=== PATIENT | male | born 1960 | race Caucasian/White ===

== ENCOUNTER → 2018-06-07 11:30 | Outpatient (CLI) | payer OTHER, SELFPAY ==
[2018-06-07 09:13] VITALS: BMI 24.8
[2018-06-07 14:26] LABS: Absolute Lymphocyte Count 1.51 X10^3/ul (0.83-4.51); Absolute Neutrophil Count 3.9 X10^3/uL (2.0-7.7); Basophil# 0.01 X10^3/uL; Basophil% 0.2 % (0-1); Eosinophil# 0.08 X10^3/uL; Eosinophils% 1.3 % (0-5); Hematocrit 44.5 % (40-54); Hemoglobin 14.7 g/dl (13.0-16.5); Lymphocyte # 1.51 X10^3/ul (4.0); Lymphocyte % 24.4 % (19-41); Mean Corpuscular Hgb 29.6 pg (27.0-32.0); Mean Corpuscular Volume 89.7 fL (80-94); Mean Platelet Vol. 10.7 fl (6.2-12.0); Monocyte# 0.68 X10^3/uL; Neutrophil # 3.88 X10^3/uL (2.7-7.7); Neutrophil % 62.8 % (47-70); Platelet Count 280 K/mm3 (150-450); RBC Distribution Width CV 13.2 % (11.6-14.6); Red Blood Count 4.96 M/mm3 (4.6-6.2); White Blood Count 6.2 K/mm3 (4.4-11.0)
[2018-06-07 14:27] LABS: POSITIVE COUNT NO; POSITIVE DIFFERENTIAL NO; POSITIVE MORPHOLOGY NO
[2018-06-07 14:43] LABS: ALB/GLOB Ratio 1.1 RATIO (0.9-2.4); AST(SGOT) 17 U/L (15-37); Alanine Aminotransfer ALT/SGPT 29 U/L (16-61); Alkaline Phosphatase 67 U/L (45-117); Anion Gap 8 (5-15); BUN 19 mg/dL (7-18); BUN/Creat Ratio 19.5 RATIO (10-20); Calcium,Total 8.8 mg/dL (8.5-10.1); Chloride 105 mmol/L (98-107); Cholesterol 174 mg/dL (200); Creatinine, Serum 0.98 mg/dL (0.70-1.30); EST Glomerular Filtration Rate 83 mL/min (>60); Est Glom Filt Rate - Afr Amer 101 mL/min (>60); Globulin 3.5 g/dL (2.2-4.2); Glucose 82 mg/dL (74-106); High Density Lipoprotein 76 mg/dL; PSA,Total - Annual Screen 3.08 ng/mL (0.00-4.00); Protein, Total 7.5 g/dL (6.4-8.2); Sodium Level 142 mmol/L (136-145); Thyroid Stim Hormone (TSH) 1.09 uIU/mL (0.358-3.74); Triglycerides 32 mg/dL; Very Low Density Lipoprotein 6 mg/dL (5-40)
--- OUTSIDE RECORDS SUMMARY | 2018-08-02 10:27 | XMS RPT_ITS ---
:1960 Author Organization OHIP Care Team Providers Name Role Phone Heri Umana ANIMAL CRUELTY INVESTIGATOR-C Attending Unavailable Kameron Horta Referring Unavailable Heri Umana ANIMAL CRUELTY INVESTIGATOR-C Attending Unavailable Heri Umana ANIMAL CRUELTY INVESTIGATOR-C Referring Unavailable Kameron Horta Primary Care Unavailable PROBLEMS PROBLEMS DATE TYPE CONDITION / CODE ATTENDING STATUS SOURCE 06/07/2018 Unknown Z00.00 - Heri Umana Active [place] Encounter for ANIMAL CRUELTY INVESTIGATOR-C [facility] medical Repository examination without abnormal findings / Z00.00(ICD-10) 06/07/2018 Unknown Z12.5 - Encounter Heri Umanaoster for screening for ANIMAL CRUELTY INVESTIGATOR-C [facility] neoplasm of Repository prostate / Z12.5(ICD-10) 06/07/2018 Unknown Z13.29 - Heri Umana Active [place] Encounter for ANIMAL CRUELTY INVESTIGATOR-C [facility] other suspected Repository endocrine disorder / Z13.29(ICD-10) PROCEDURES PROCEDURES No Procedure Records FoundRESULTS RESULTS INTERNAL MEDICINE Observed: 06/10/2018 Status: F Source: [place] OFFICE VISIT 12:07 PM [facility] REPOSITORY [facility] [address] [place] [address] OFFICE VISIT Date of Service: 06/07/18 MR#: [id number] Acct: [id number] Name: TIFFANY MIRZA Rep #: [id number] : 1960 Provider: Heri Umana ANIMAL CRUELTY INVESTIGATOR Age/Sex: 57/M Location: [facility] [place] Status: Signed Intake Vital Signs06/07/18 Height 5 ft 10 in Intake Visit 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 The patient has a past medical history as listed above. The patient presents today with no acute problems or concerns. He states he is up-to-date on his colonoscopies. He has not received influenza vaccine this year but is refusing currently. He denies smoking or drinking alcohol. He denies issues with his prostate such as dribbling or weak stream. The patient otherwise denies any fever, chills, nausea, vomiting, shortness of breath, chest pain or pressure, palpitations, orthopnea, lower extremity edema, syncope or presyncopal episodes. ROS Const Constitutional: No anorexia, body ache, chills, fever(s), decreased energy, malaise, night sweats, weight change, sleep problems, other, snoring, weakness, frequent falls, headache(s), abnormal sleep pattern, change in appetite, excessive sweating or fatigue Eyes Eyes: No blurry vision, change in vision, double vision, discharge, dry eyes, bulging eyes, floaters, eye pain, light sensitivity, spots in vision, tunnel vision, other or visual disturbances ENT ENT: Positive for tinnitus; no ear pain, ear discharge, ear pressure, hearing loss, dizziness/vertigo, balance problems, nosebleed/epistaxis, nasal congestion, nasal obstruction, nose pain, sinus pressure, sinus pain, nasal discharge, post nasal drip, facial pain, dental pain, dry mouth, bad breath, hoarseness, mouth lesions, mouth pain, sore throat, difficulty swallowing, neck pain, abnormal hearing, headache(s), other, lip swelling, throat swelling or tongue swelling Resp Respiratory: No cough, change in phlegm color, chest congestion, excessive phlegm production, hemoptysis, pain on inspiration, shortness of breath, pain with cough, snoring, stridor, other or wheezing Cardio Cardiology: No chest pain at rest, chest pain with exertion, leg pain with exertion, shortness of breath, dyspnea on exertion, generalized swelling, irregular heart rhythm, lightheadedness, orthopnea, radiating jaw, neck or arm pain, fast heart rate, slow heart rate, palpitations, other or excessive sweating Gastro GI: No abdominal pain, belching, bloating, change in bowel habits, change in stool character, coffee ground emesis, constipation, cramping, diarrhea, heartburn, difficulty swallowing, feeling full early, excessive flatus, incontinent of stools, Vomiting blood/hematemesis, blood in stool, loose stools, Black,tarry stools, nausea/dyspepsia, pain with swallowing, vomiting or other Musc Musculoskeletal: No joint pain, back pain, deformity, joint swelling, limited range of motion, loss of height, muscle cramps, muscle weakness, decreased muscle mass, body aches, neck pain, radiating pain into limb, stiffness, other, abnormal walking, numbness or tingling Skin Skin: No acne, hair loss, change in hair, nail changes, boil, change in skin color, dry skin, redness, excessive hair growth, yellowing of the skin, lesions, rash, skin pain, skin ulcer, sores, skin swelling, wounds or itching Neuro Neurology: No abnormal walking, abnormal hearing, abnormal movements, abnormal speech, unsteady gait/balance, dizziness, weakness, frequent falls, headache(s), lack of coordination, loss of vision, numbness, tingling, visual disturbances, restless legs, fainting, tremor(s), other, behavioral changes, confusion or memory loss Psych Psychiatric: No abnormal sleep pattern, No lack of enjoyment, No anxiety, No behavioral changes, No change in appetite, No confusion, No depression, No difficulty concentrating, No hopelessness, No irritability, No memory loss, No mood swings, No panic attacks, No paranoia, No Thoughts of harming yourself/Others, No hallucinations, No other Endo Endocrine: No change in body appearance, cold intolerance, excessive sweating, fatigue, flushing, heat intolerance, increased thirst/drinking, increased hunger, increased urination or other Aller/Imm Allergy/Immunologic: No food intolerance, itchy eyes, lip swelling, seasonal allergy symptoms, throat swelling, tongue swelling, hives, wheezing or other Octavio/Lymp Hematologic/Lymphatic: No easy bleeding, easy bruising, enlarged lymph nodes or other Exam Const General: cooperative, comfortable, no acute distress Nutritional Appearance: average body habitus, well nourished Orientation: alert, oriented x3 Limitations: mental status not altered HENWI Head: normal to inspection Ears: hearing grossly normal bilaterally Nose: external nose normal Eyes General: appearance normal, both eyes and all related structures Neck Neck: normal visual inspection Thyroid: thyroid normal Lymphatic: no lymphadenopathy noted Resp Effort AND Inspection: normal respiratory effort, able to speak in complete sentences, normal respiratory pattern, symmetric chest movement, no audible wheezes, no cough Auscultation: Bilateral: Clear to Auscultation Cardio Palpation: normal PMI Rate: regular rate Heart Sounds: S1 normal, S2 normal, normal S1 and S2, no click, no gallops, no murmurs, no rubs GI Inspection: normal to inspection Auscultation: normal bowel sounds, no hyperactive bowel sounds, no hypoactive bowel sounds Palpation: soft, no hepatosplenomegaly, nontender Other: Waist circumference 37 inches Musc Musculoskeletal: No muscle weakness Skin General: no rashes or lesions noted, elasticity normal, turgor normal Lesions: no lesions Rashes: no rashes Neuro General: alert, awake, oriented x3, CN's II-XI intact bilaterally Speech: speech normal Gait: normal gait Motor: muscle tone normal throughout Extrem General: normal to inspection, normal gait, no edema, no pedal edema Psych Appearance: grossly normal Mental Status: mental status grossly normal Affect: normal affect Attitude: cooperative Thought Process: normal Assessment AND Plan Problems 1. Encounter for preventative adult health care examination Z00.00 Plan We will obtain CBC, CMP, psa, tsh and lipid as baseline bloodwork. Patient current on colonoscopies. Pt to continue with diet, exercise, weightloss and avoidance of excessive alcohol and tobacco. no concern for stds. Refusing influenza and all vaccines at this time. Orders Orders: Plan Detail Follow Up As needed Coding Level of Care Code Off vis,new,prev 40-64yrs Diagnoses Encounter for preventative adult health care examination Z00.00 06/10/18 1207 <Electronically signed by Heri Umana ANIMAL CRUELTY INVESTIGATOR-C> Date Heri Umana ANIMAL CRUELTY INVESTIGATOR-C Cosigner Signature: Date (if applicable) CC: CBC W/DIFF, AUTOMATED Collected: 06/07/2018 Status: F Source: [place] 11:39 AM [facility] REPOSITORY TYPE CODE TESTS RESULT OUT OF RANGE REFERENCE UNITS LAB L100.1000 4.4-11.0 K/mm3 Normal WBC 6.2 LAB L100.1200 4.6-6.2 M/mm3 Normal RBC 4.96 LAB L100.1300 13.0-16.5 g/dl Normal HGB 14.7 LAB L100.1400 40-54 % Normal HCT 44.5 LAB L100.1500 80-94 fL Normal MCV 89.7 LAB L100.1600 27.0-32.0 pg Normal MCH 29.6 LAB L100.1700 32-36 g/gl Normal MCHC 33.0 LAB L100.1810 11.6-14.6 % Normal RDW CV 13.2 LAB L100.1820 35.1-43.9 fl Normal RDW SD 43.0 LAB L100.1900 150-450 K/mm3 Normal PLT 280 LAB L100.2000 6.2-12.0 fl Normal MPV 10.7 LAB L100.2100 47-70 % Normal NEUT% 62.8 LAB L100.2200 19-41 % Normal LY% 24.4 LAB L100.2300 0-10 % High MONO% 11.0 LAB L100.2400 0-5 % Normal EO% 1.3 LAB L100.2500 0-1 % Normal BASO% 0.2 LAB L100.2550 0.0-0.9 % Normal IM GRAN % 0.300 Result Comment: IG% - Immature Granulocytes (promyelocytes, myelocytes and metamyelocytes) > 1% indicates that a LEFT SHIFT is Present. LAB L100.2620 2.0-7.7 X10 3/uL Normal Absolute Neut 3.9 LAB L100.2720 0.83-4.51 X10 3/ul Normal Absolute Lymph 1.51 Performed By: #### L100.0100 #### [facility] [place], [address] COMPREHENSIVE METABOLIC Collected: 06/07/2018 Status: F Source: [place]ZA 11:39 AM [facility] REPOSITORY TYPE CODE TESTS RESULT OUT OF RANGE REFERENCE UNITS LAB L501.0100 74-106 mg/dL Normal GLU 82 Result Comment: Please note revised GLUCOSE reference range effective 2017. LAB L501.1000 7-18 mg/dL High BUN 19 LAB L501.1100 0.70-1.30 mg/dL Normal CREAT,SERUM 0.98 Result Comment: The validity of the calculated GFR AND GFRAA in patients over 70 years has not been determined. Clinical correlation is essential. LAB L501.1110 >60 mL/min Normal EST GFR 83 Result Comment: Non- GFR Calc LAB L501.1115 >60 mL/min Normal EST GFR - AA 101 Result Comment: GFR Calc LAB L501.1300 10-20 RATIO Normal BUN/CRE 19.5 LAB L501.1500 6.4-8.2 g/dL T Normal PROT 7.5 LAB L501.1800 3.2-5.0 g/dL Normal ALB 4.0 LAB L501.1950 2.2-4.2 g/dL Normal GLOB 3.5 LAB L501.2000 0.9-2.4 RATIO Normal A/G 1.1 LAB L501.2200 8.5-10.1 mg/dL CA Normal 8.8 LAB L501.4100 15-37 U/L Normal AST 17 LAB L501.4305 45-117 U/L Normal ALK P 67 LAB L501.4405 16-61 U/L Normal ALT 29 LAB L501.4600 0.20-1.00 mg/dL T Normal BILI 0.90 LAB L501.5300 136-145 mmol/L NA Normal 142 LAB L501.5600 3.5-5.1 mmol/L K Normal 4.0 LAB L501.5900 98-107 mmol/L CL Normal 105 LAB L501.6100 21.0-32.0 mmol/L Normal CO2 29.0 LAB L501.6200 5-15 Normal GAP 8 Performed By: #### L500.4050, L500.4100, L501.9520, L501.9910 #### [facility] [address] [place], [address] LIPID PROFILE Collected: 06/07/2018 Status: F Source: [place] 11:39 AM [facility] REPOSITORY TYPE CODE TESTS RESULT OUT OF RANGE REFERENCE UNITS LAB L501.4900 200 mg/dL Normal CHOL 174 Result Comment: <200 mg/dL Desirable 200-240 mg/dL Borderline >240 mg/dL High Risk LAB L501.5000 mg/dL Normal TRIG 32 Result Comment: The drugs N-Acetylcysteine and Metamizole may falsely depress this assay. Serum Triglycerides Reference Interval Normal <150 mg/dL Borderline high 150 - 199 mg/dL High 200 - 499 mg/dL Very High > or = 500 mg/dL LAB L501.6400 mg/dL Normal HDL 76 Result Comment: The drugs N-Acetylcysteine and Metamizole may falsely depress this assay. Reference Range HDL <40 mg/dL Low HDL Cholesterol HDL >or= 60 mg/dL High HDL Cholesterol LAB L501.6500 0-130 mg/dL Normal LDL 92 LAB L501.6600 5-40 mg/dL Normal VLDL 6 Performed By: #### L500.4050, L500.4100, L501.9520, L501.9910 #### [facility] [address] [place], [address] THYROID STIM HORMONE Collected: 06/07/2018 Status: F Source: [place] (TSH) 11:39 AM [facility] REPOSITORY TYPE CODE TESTS RESULT OUT OF RANGE REFERENCE UNITS LAB L501.9520 0.358-3.74 uIU/mL Normal TSH 1.09 Performed By: #### L500.4050, L500.4100, L501.9520, L501.9910 #### [facility] [address] [place], [place], [id number] PSA,TOTAL - ANNUAL Collected: 06/07/2018 Status: F Source: [place] SCREEN 11:39 AM [facility] REPOSITORY TYPE CODE TESTS RESULT OUT OF RANGE REFERENCE UNITS LAB L501.9910 0.00-4.00 ng/mL Normal PSA,TOT 3.08 SCREEN Result Comment: This test was performed using the TPSA assay method for the [employer] chemistry system. Values obtained with different assay methods cannot be used interchangably. When changing PSA assays in the course of monitoring a patient, additional sequential testing should be carried out to confirm baseline values. Performed By: #### L500.4050, L500.4100, L501.9520, L501.9910 #### [facility] [address] [place], [address] ALLERGIES ALLERGIES DATE TYPE / CODE NAME / CODE REACTION SEVERITY SOURCE 06/07/2018 Drug Penicillins/ Rash Unknown [facility] Allergy/4160 [id number]( Hospital [address](SNOMED XNORM) Repository CT) ENCOUNTERS ENCOUNTERS ADMIT/DISCHARGE ACCOUNT ADMITTING ENCOUNTER LOCATION SOURCE NUMBER CLASS 06/07/2018 [id number] Ambulatory [place] [address] [facility] ing:MTLAB Repository 06/07/2018/ [id number] Ambulatory BMSBuilding:B [place] 8 0 [place].[facility] PAYERS PAYERS ENCOUNTER GUARANTOR PAYER SUBSCRIBER SOURCE 06/07/2018 TIFFANY Mckeon [id number] OIL [facility], [facility]: [id number] [address]Aqg: [id number] Repository Date:[id number] () [id number], [place] [address]BS: 06/07/2018 Secondary NOT GIVENUNK [place] Insurance:SELF PAY [facility] Number: Effective Repository Date:2018-06-07 06/07/2018 TIFFANY Mckeon [id number] OIL [facility], Number: [id number] [address]Gxy: [id number] Repository Date:[id number]) [address], [place] [address]EB: 06/07/2018 Secondary NOT GIVENUNK [place] Insurance:SELF PAY [facility] Effective Repository Date:2018-06-03
== END ==
PROVIDERS: Family Provider Family Medicine; PCP Family Medicine; Referring Provider Nurse Practitioner Family; Visit Provider Nurse Practitioner Family
DX: Z00.00 Encounter for general adult medical examination without abnormal findings (principal); Z12.5 Encounter for screening for malignant neoplasm of prostate; Z13.29 Encounter for screening for other suspected endocrine disorder
CPT/HCPCS: 36415; 80053; 80061; 84153; 84443; 85025; G0103

== ENCOUNTER 2023-02-03 16:48 | Emergency (ER) | payer OTHER, SELFPAY ==
[2023-02-03 16:49] VITALS: BP 142/78; PULSE 97; RESP 18; TEMP 35.9; O2SAT 99; BMI 24.0
--- NOTE | 2023-02-03 17:13 | EX.ED.DYSGE1 ---
HPI History of Present Illness Chief Complaint: Headache Narrative Narrative: Patient is a 62-year-old male who is presenting to the ER with chief complaint of headache behind his left ear, left side of his neck. Patient stated some of the pain started on , worsened somewhat yesterday and today. This morning patient felt a popping sensation in his left ear as well, patient does have a history of tinnitus, patient did have mild tinnitus this morning. Patient also states when he bends over he feels more pressure to left ear, left mastoid area. Patient denies any type of injury or traumatic experience. Patient took Motrin and Claritin this morning. Patient stated that the Claritin feel like it open up his sinuses in the left slightly. Patient then took another Claritin this evening at dinnertime, but he feels like there may be fluid behind his ear. Patient has no vision changes. Patient does have some mild muffled hearing to the left ear. Patient does not have a history of headaches or migraines. Patient's headache was not the worse headache of her life, not sudden onset, not thunderclap in nature. Patient denies any trauma, no fall. No chest pain or shortness of breath. No nausea, vomiting. Patient states he Motrin and Claritin did help somewhat with his headache from this morning. 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 Patient's is at bedside. Patient states when he bends over, he has pressure in his head as well. We discussed the options, possible differential diagnosis of mastoiditis, URI, sinus congestion, headache, cervical strain. Patient has elected to have CT of the brain, IV fluids, IV medication, and we will perform additional testing to make sure not missing any other acute abnormality. Patient agrees. [facility] Medical History (Updated 02/03/23 @ 20:[address] Haider Odonnell DO) Back pain Skin cancer Home Medications methylprednisolone 4 mg tablets in a dose pack 4 mg PO UD ##1 02/03/23 [Rx Last Taken Unknown] Allergy/AdvReac Type Severity Reaction Status Date / Time Penicillins Allergy Rash Verified 06/07/18 09:26 Family History (Updated 06/07/18 @ 09:28 by Shaunna Campo) Mother Diabetes Hypertension Kidney disease Father Colon cancer at age 49 Sister Cancer Uterine Cancer Surgical History Cholecystectomy planned H/O hand surgery Social History (Updated 06/10/18 @ 12:07 by Heri Umana NP, DISTRICT MANAGER POSTAL SERVICE-C) Smoking Status: Never smoker ROS ROS ED ROS Narrative REVIEW OF SYSTEMS: Unless otherwise stated in this report the patient's positive and negative responses for review of systems for constitutional, eyes, ENT, cardiovascular, respiratory, gastrointestinal, neurological, , musculoskeletal, and integument systems and related systems to the presenting problem are either stated in the history of present illness or were not pertinent or were negative for the symptoms and/or complaints related to the presenting medical problem. EXAM Physical Exam Narrative Exam Narrative: Vital signs reviewed and patient is not hypoxic. General: The patient appears well and in no apparent distress. Patient is resting comfortably on cart. Not toxic, lethargic, or listless. Skin: Warm, dry, no pallor noted. There is no rash noted. Head: Normocephalic, atraumatic, patient has no tenderness to palpation to his left mastoid bone, no redness over the left mastoid. Patient has no midline or paracervical tenderness to palpation. Full range of motion of cervical spine with no pain elicited with rotation and sidebending flexion extension of cervical spine. No meningeal signs or symptoms. No tenderness to palpation to the left sternocleidomastoid, no swelling, ecchymosis to the left side of his neck or below his jaw. Eye: Normal conjunctiva, no drainage, EOMI. PERRL. Ears, Nose, Mouth, and Throat: oral mucosa is moist. Nares patent. Mouth without vesicles. Cardiovascular: Regular Rate and Rhythm, no murmurs, gallops, or rubs Respiratory: Patient is in no distress, no accessory muscle use, lungs are clear to auscultation, no wheezing, rales or rhonchi Back: non-tender, no CVA tenderness bilaterally to percussion. NO CTLS midline or paraspinal tenderness to palpation. GI: Soft, no tenderness to palpation, Musculoskeletal: The patient has full range of motion of all extremities and joints with no difficulty. Patient has no motor, no sensory deficits. Neurological: A&O x4, normal speech, no focal neurological deficits. Psychiatric: Cooperative Const Vital Signs: 02/03/23 16:49 Temperature 96.7 F L Temperature Source Temporal Pulse Rate 97 Respiratory Rate 18 Blood Pressure 142/78 H Blood Pressure Mean 99 Pulse Ox 99 Oxygen Delivery Method Room Air MDM MDM MDM Narrative Medical decision making narrative: Patient will do CT of the brain, IV fluids, IV Toradol, Compazine, Norflex. This appears to be muscle skeletal in nature. Patient does not have a history of headaches or migraines. 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 Patient states he has most of his left arm inside a cow, and is in a awkward position artificially intimidating the cow. Patient states has been doing this for 20 years, never had any type of muscle skeletal injury. It was hot on , he did not drink much water, patient's is wondering if dehydration could be part of the problem. Patient to have further testing, IV medication to further evaluate. CT of the brain shows no acute findings. Patient felt much better after IV fluids, Toradol and Norflex. Patient had education on 3-day history of acute sphenoid sinusitis and how to treat symptoms at home. Patient will use DayQuil, NyQuil and Flonase. Patient will use a Medrol Dosepak. Patient will follow-up and establish PCP in 7 to 10 days. Patient was placed on Medrol Dosepak to help with inflammation of the sinuses. Patient has no indication for antibiotics at this time, education was done at bedside. No questions at discharge. Patient and his are very happy and thankful for care, patient feels much better at discharge. Radiography Diagnostic Testing: Clinical Impression(s) from Imaging Studies Brain CT 02/03/23 17:49 IMPRESSION: Isolated, acute left sphenoid sinusitis. If rapid improvement is not seen during therapy, additional workup/evaluation may be indicated. Graft no intracranial abnormality. Electronically Signed: Katerina Mejia MD at 19:03 EDT Reading Location ID and State: [id number] / Tel , Service support , Discharge Plan Triage Chief Complaint: Headache ED Provider: Haider Odonnell Dx/Rx/DC Orders Clinical Impression: Sinusitis, acute, sphenoidal, Headache, Tinnitus Instructions: Tinnitus (Ringing in the Ears), Understanding Headache Pain, Causes of Sinusitis, Self-Care for Sinusitis, When to Use Antibiotics, ED Headache, Tension, ED Sinusitis (No Antibiotics) Prescriptions: New methylprednisolone [methylprednisolone] 4 mg tablets,dose pack 4 mg PO UD Qty: 1 0RF Primary Care Provider: Care Physician,No Primary Referrals: Kameron Horta DO [[facility] - Bariatric Surgeon] - Activity Restrictions/Additional Instructions: Use [id number] DayQuil, NyQuil, and Flonase. Use either Motrin, Advil or ibuprofen every 6 hours in her milligrams with food or drink to help with pain and anti-inflammatory properties. Use Medrol Dosepak to help with inflammation. If no improvement by the end of next week, follow-up with PCP or urgent care for reevaluation. Disposition Disposition: Home, Self Care Discharge Date/Time: 02/03/23 21:00
--- NOTE | 2023-02-03 17:49 | CT_ITS ---
STUDY: CT BRAIN WITHOUT CONTRAST REASON FOR EXAM: Male, 62 years old. Pain RADIATION DOSAGE (If Supplied By Facility): CTDIvol = ( 44.99 ) mGy, DLP = ( 829.85 ) mGycm TECHNIQUE: Transaxial CT imaging of the brain was performed without administration of intravenous contrast material. Individualized dose optimization techniques were used for this CT. COMPARISON: No relevant priors. FINDINGS: Normal soft tissue structures. Normal calvarium. Normal size ventricles and extra-axial spaces for the patient''s age. Normal white matter tracts of the cerebral hemispheres. Normal basal ganglia and thalami. Normal brainstem. Normal cerebellum. There is no intracranial hemorrhage. There are no findings of an acute ischemic infarction. Fluid level in the left sphenoid sinus. CT/Brain/Head without Contrast IMPRESSION: Isolated, acute left sphenoid sinusitis. If rapid improvement is not seen during therapy, additional workup/evaluation may be indicated. Graft no intracranial abnormality. Electronically Signed: Katerina Mejia MD at 19:03 EDT Reading Location ID and State: [id number] / Tel , Service support ,
[2023-02-03] MEDS: proCHLORPERazine 10 MG/2 ML Vial IV (18:14)
[2023-02-03] MEDS: Orphenadrine 60 MG/2 ML Ampul IV (18:15)
[2023-02-03] MEDS: 0.9% Normal Saline 1,000 ML 999 ML IV (18:15)
[2023-02-03] MEDS: Ketorolac 15 MG/ML Vial IV (18:16)
== END 2023-02-03 21:00 | disposition home or self-care (01) ==
PROVIDERS: Emergency Provider Emergency Medicine; Visit Provider Emergency Medicine
DX: J01.30 Acute sphenoidal sinusitis, unspecified (principal); H93.12 Tinnitus, left ear
CPT/HCPCS: 70450; 96361; 96374; 96375; 99284; J7030; A4216

== ENCOUNTER → 2024-08-21 | Outpatient (CLI) | payer OTHER, SELFPAY ==
[2024-08-21 10:47] LABS: Absolute Lymphocyte Count 1.32 X10^3/uL (0.83-4.51); Absolute Neutrophil Count 2.5 X10^3/uL (2.0-7.7); Basophil# 0.04 X10^3/uL; Basophil% 0.9 % (0-1); Eosinophil# 0.14 X10^3/uL; Eosinophils% 3.1 % (0-5); Hematocrit 46.4 % (40-54); Hemoglobin 15.1 g/dL (13.0-16.5); Lymphocyte # 1.32 X10^3/ul (0.83-4.51); Lymphocyte % 29.3 % (19-41); Mean Corp Hgb Conc 32.5 g/dL (32-36); Mean Corpuscular Hgb 29.4 pg (27.0-32.0); Mean Corpuscular Volume 90.3 fL (80-94); Mean Platelet Vol. 10.3 fl (6.2-12.0); Monocyte# 0.48 X10^3/uL; Monocyte% 10.6 % (0-10); NRBC Flagged by Analyzer 0 % (0-5); Neutrophil # 2.51 X10^3/uL (2.7-7.7); Neutrophil % 55.7 % (47-70); Platelet Count 259 K/mm3 (150-450); RBC Distribution Width CV 12.7 % (11.6-14.6); RBC Distribution Width SD 42.5 fl (35.1-43.9); Red Blood Count 5.14 M/mm3 (4.6-6.2); White Blood Count 4.5 K/mm3 (4.4-11.0)
[2024-08-21 11:44] LABS: ALB/GLOB Ratio 1.2 RATIO (0.9-2.4); AST(SGOT) 21 U/L (15-37); Alanine Aminotransfer ALT/SGPT 21 U/L (16-61); Albumin, Serum 4.1 g/dL (3.2-5.0); Alkaline Phosphatase 77 U/L (45-117); Anion Gap 6 (5-15); BUN 23 mg/dL (7-18); BUN/Creat Ratio 24.3 RATIO (10-20); Calcium,Total 9.5 mg/dL (8.5-10.1); Chloride 105 mmol/L (98-107); Cholesterol 167 mg/dL (200); Creatinine, Serum 0.94 mg/dL (0.70-1.30); EST Glomerular Filtration Rate 85 mL/min (>60); Est Glom Filt Rate - Afr Amer 103 mL/min (>60); Globulin 3.5 g/dL (2.2-4.2); Glucose 105 mg/dL (74-106); High Density Lipoprotein 97 mg/dL; PSA,Total - Annual Screen 2.64 ng/mL (0.00-4.00); Potassium 4.1 mmol/L (3.5-5.1); Protein, Total 7.6 g/dL (6.4-8.2); Sodium Level 138 mmol/L (136-145); Triglycerides 40 mg/dL; Very Low Density Lipoprotein 8 mg/dL (5-40)
== END | disposition home or self-care (01) ==
LOC: MTLAB 08:13
PROVIDERS: PCP Nurse Practitioner Family; Referring Provider Nurse Practitioner Family; Visit Provider Nurse Practitioner Family
DX: Z00.01 Encounter for general adult medical examination with abnormal findings (principal); Z12.5 Encounter for screening for malignant neoplasm of prostate
CPT/HCPCS: 36415; 80053; 80061; 84153; 85025; G0103